=== PATIENT | female | born 1955 | race Caucasian/White ===

== ENCOUNTER 2016-04-06 14:54 | Inpatient (IN) | payer OTHER ==
[~2016-04-06] VITALS: Ht 157.5 cm; Wt 70.0 kg
[~2016-04-06 14:54] MED LIST: BUTACAP3 PO; ESTR1TAB PO; LEVO.125 PO; PROG100C PO; PROP1TAB66 PO
[2016-04-06 14:57] VITALS: BP 157/74; PULSE 103; RESP 18; TEMP 97.8; O2SAT 98
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
[2016-04-06 15:30] VITALS: BP 144/65; PULSE 88; RESP 16; O2SAT 100
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
[2016-04-06] MEDS ORDERED: ESTR1TAB PO (15:54)
[2016-04-06] MEDS ORDERED: LEVO125T4 PO (15:54)
[2016-04-06] MEDS ORDERED: FIORINAL2 PO (15:54)
[2016-04-06] MEDS ORDERED: PROG100C PO (15:54)
[2016-04-06] MEDS ORDERED: PROP10TA6 PO (15:54)
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
[2016-04-06] MEDS ORDERED: LEVOTHYROXINE SODIUM 125 MCG TAB PO ONE (17:45)
[2016-04-06] MEDS ORDERED: PANTOPRAZOLE SODIUM 40 MG VIAL IV PUSH SCH (17:45)
[2016-04-06 18:00] VITALS: BP 141/67; PULSE 98; RESP 16; O2SAT 98
[2016-04-06] MEDS: ACETAMINOPHEN/HYDROcodone 325 MG/5 MG TAB PO PRN ×2 (18:00→22:02)
[2016-04-06 18:01] LABS: AUTOMATED NEUTROPHIL # 6.8 TH/MM3 (1.8-7.7); BASOPHIL # 0.1 TH/MM3 (0-0.2); BASOPHIL % 0.8 % (0.0-2.0); EOSINOPHIL # 0.1 TH/MM3 (0-0.4); EOSINOPHIL % 0.9 % (0.0-4.0); HEMO FLAGS DIFF FINAL; LYMPH % 15.8 % (9.0-44.0); LYMPHOCYTE # 1.4 TH/MM3 (1.0-4.8); MEAN CORPUSCULAR HEMOGLOBIN 31.3 PG (27.0-34.0); MEAN CORPUSCULAR HGB CONC 34.4 % (32.0-36.0); MONO % 5.6 % (0.0-8.0); NEUT % 76.9 % (16.0-70.0); PLATELET COUNT 266 TH/MM3 (150-450); RED BLOOD COUNT 4.72 MIL/MM3 (4.00-5.30); RED CELL DISTRIBUTION WIDTH 12.2 % (11.6-17.2); WHITE BLOOD COUNT 8.9 TH/MM3 (4.0-11.0)
[2016-04-06 18:10] LABS: APTT (PATIENT) 26.3 SEC (24.3-30.1); PROTHROMBIN TIME - PATIENT 10.6 SEC (9.8-11.6)
[2016-04-06] MEDS: SODIUM CHLOR 0.9% 1000 ML INJ 1,000 ML IV SCH (18:19)
[2016-04-06 18:27] LABS: ANION GAP 8 MEQ/L (5-15); BICARBONATE 22.8 MEQ/L (21.0-32.0); BLOOD UREA NITROGEN 17 MG/DL (7-18); CHLORIDE 107 MEQ/L (98-107); GLOMERULAR FILTRATION RATE 72 ML/MIN (>89); SODIUM (NA) 138 MEQ/L (136-145)
[2016-04-06 19:31] VITALS: BP 143/78; PULSE 84; RESP 16; O2SAT 98
[2016-04-06 22:01] VITALS: BP 142/84; PULSE 82; RESP 16; O2SAT 98
[2016-04-07] VITALS (7 sets, daily range): BP systolic 114–135; BP diastolic 56–78; PULSE 71–98; RESP 16–20; TEMP 97.3–98.6; O2SAT 94–99
[2016-04-07] MEDS: ACETAMINOPHEN/HYDROcodone 325 MG/5 MG TAB PO PRN ×3 (02:51→12:53)
[2016-04-07 03:09] LABS: AMPHETAMINE, URINE NEG (NEG); BARBITURATES, URINE POS (NEG); COCAINE, URINE NEG (NEG)
[2016-04-07] MEDS ORDERED: SODIUM CHLOR 0.9% 1000 ML INJ 1,000 ML IV SCH (06:42)
[2016-04-07] MEDS ORDERED: ONDANSETRON HCL 4 MG/2 ML VIAL IV PRN (06:45)
[2016-04-07] MEDS ORDERED: ENALAPRILAT 1.25 MG/ML VIAL IV PRN (06:45)
[2016-04-07] MEDS ORDERED: ACETAMINOPHEN 325 MG TAB PO PRN (06:45)
[2016-04-07] MEDS ORDERED: MAGNESIUM HYDROXIDE SUSP 30 ML CUP PO PRN (06:45)
[2016-04-07] MEDS ORDERED: CHLORHEXIDINE GLUCONATE 2 % 1 PACK (2 CLOTHS) TOP PRN (06:45)
[2016-04-07] MEDS ORDERED: MISCELLANEOUS NURSING INFORMATION XX SCH (06:45)
[2016-04-07] MEDS ORDERED: SODIUM CHLORIDE 0.9% FLUSH 5 ML FLUSH IVF PRN (06:45)
[2016-04-07] MEDS: SODIUM CHLOR 0.9% 1000 ML INJ 1,000 ML IV SCH (08:06)
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
[2016-04-07] MEDS ORDERED: ESTRADIOL 1 MG TAB PO SCH (09:00)
[2016-04-07] MEDS ORDERED: PROPRANOLOL HCL 10 MG TAB PO SCH (09:00)
[2016-04-07] MEDS ORDERED: DOCUSATE SODIUM 100 MG CAP PO SCH (09:00)
[2016-04-07] MEDS ORDERED: ACET325T PO (17:22)
[2016-04-07] MEDS ORDERED: DOCU1CAP39 PO (17:22)
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
[2016-04-07] MEDS ORDERED: FAMOTIDINE 20 MG TAB PO SCH (21:00)
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
[2016-04-08] MEDS ORDERED: CHLORHEXIDINE GLUCONATE 2 % 1 PACK (2 CLOTHS) TOP SCH (04:00)
== END 2016-04-07 23:17 | disposition home or self-care (01) | DRG 90 ==
LOC: NEPE 14:54 → NEDA 17:49 → NEPHCDU 04-07 02:40 → OBSVTOIN 04-07 06:48
PROVIDERS: ADMIT Surgery; ATTEND Surgery
DX: S06.0X1A Concussion with loss of consciousness of 30 minutes or less, initial encounter (principal); S02.32XA Fracture of orbital floor, left side, initial encounter for closed fracture; S01.112A Laceration without foreign body of left eyelid and periocular area, initial encounter; E03.9 Hypothyroidism, unspecified; R41.2 Retrograde amnesia; V18.4XXA Pedal cycle driver injured in noncollision transport accident in traffic accident, initial encounter; Y92.410 Unspecified street and highway as the place of occurrence of the external cause; E78.00 Pure hypercholesterolemia, unspecified
CPT/HCPCS: 12011; 70450; 70486; 72125; 80048; 80307; 80320; 85025; 85610; 85730; C9113; G0378; G8987-GP; G8988-GP; J2405; J7030